=== PATIENT | male | born 1950 | race Caucasian/White ===

== ENCOUNTER 2023-07-13 09:18 | Emergency (ER) | payer MEDICARE, BC ==
[~2023-07-13] VITALS: Ht 175.3 cm; Wt 79.6 kg
[2023-07-13 09:22] VITALS: BP 135/102; PULSE 85; RESP 19; TEMP 97.5; O2SAT 97
[2023-07-13 09:44] LABS: BILIRUBIN,URINE NEGATIVE (Neg); CLARITY,URINE CLEAR (Clear); COLOR,URINE YELLOW (Yellow); GLUCOSE, URINE NEGATIVE (Neg); KETONES,URINE 15 mg/dl (Neg); LEUKOCYTE ESTERASE ,URINE NEGATIVE (Neg); NITRITES, URINE NEGATIVE (Neg); OCCULT BLOOD,URINE NEGATIVE (Neg); PH,URINE 5.5 (4.8-8.0); PROTEIN,URINE NEGATIVE (Neg); UROBILINOGEN,URINE 0.2 E.U/dL (0.2-1.0)
[2023-07-13 10:06] LABS: UA COLLECTION TYPE CLN CATCH MIDSTREAM
[2023-07-13 10:25] LABS: BASOPHILS % (AUTO) 0.2 % (0-1); EOSINOPHILS % (AUTO) 0.1 % (0-6); HEMATOCRIT 44.6 % (42.0-52.0); LYMPHOCYTES # (AUTO) 1.1 X10'3 (1.1-4.8); LYMPHOCYTES % (AUTO) 10.1 % (21-51); MEAN CORPUSCULAR HEMOGLOBIN 30.4 PG (27.0-31.0); MEAN CORPUSCULAR HGB CONC 33.6 g/dL (33.0-36.5); MEAN CORPUSCULAR VOLUME 90.4 FL (78-98); NEUTROPHILS # (AUTO) 8.7 X10'3 (1.8-7.7); NEUTROPHILS % (AUTO) 80.6 % (42-75); PLATELET COUNT 184 X10'3 (140-440); RED BLOOD COUNT 4.93 X10'6 (4.70-6.10); RED CELL DISTRIBUTION WIDTH 13.5 % (11.5-14.5); WHITE BLOOD COUNT 10.7 X10'3 (4.5-11.0)
[2023-07-13 11:20] LABS: ALBUMIN 4.4 G/DL (3.4-5.0); BLOOD UREA NITROGEN 30 MG/DL (7-18); BUN/CREATININE RATIO 22.9 (10.0-20.0); CALCIUM 8.8 MG/DL (8.5-10.1); CHLORIDE 104 MMOL/L (99-107); CREATININE 1.31 MG/DL (0.60-1.10); GLUCOSE 121 MG/DL (70-104); LIPASE 31 U/L (16-77); SODIUM 141 MMOL/L (135-145); eCRCL 49 ML/MIN; eGFR 53 ML/MIN
[2023-07-13 11:40] LABS: ANION GAP 14 (8-16); TOTAL CARBON DIOXIDE 22.8 MMOL/L (24-32)
[2023-07-13] MEDS ORDERED: HYDR-3965 PO (12:38)
[2023-07-13] MEDS ORDERED: ONDA4TAB12 PO (12:38)
== END 2023-07-13 13:06 | disposition home or self-care (01) ==
LOC: ER 09:19
DX: N20.0 Calculus of kidney (principal); Z79.899 Other long term (current) drug therapy
CPT/HCPCS: 36415; 74176; 80048; 81003; 83690; 85025; 99284